=== PATIENT | female | born 1940 | race African-American/Black ===

== ENCOUNTER 2020-10-03 11:02 | Emergency (ER) | payer MEDICARE, OTHER ==
[~2020-10-03] VITALS: Ht 160 cm; Wt 61.0 kg
[2020-10-03] MEDS ORDERED: SILVER SULFADIAZINE 1% CREAM 25GM TOP ONE (11:30)
[2020-10-03 12:30] VITALS: BP 146/81
== END 2020-10-03 12:30 | disposition home or self-care (01) ==
LOC: ER 11:44
DX: T22.111A Burn of first degree of right forearm, initial encounter (principal); T22.132A Burn of first degree of left upper arm, initial encounter; T22.112A Burn of first degree of left forearm, initial encounter; T20.10XA Burn of first degree of head, face, and neck, unspecified site, initial encounter; F12.10 Cannabis abuse, uncomplicated; W40.8XXA Explosion of other specified explosive materials, initial encounter; Y93.89 Activity, other specified; Y92.018 Other place in single-family (private) house as the place of occurrence of the external cause; I10 Essential (primary) hypertension; E78.00 Pure hypercholesterolemia, unspecified
CPT/HCPCS: 16000; 99284